=== PATIENT | female | born 1960 | race Caucasian/White ===

== ENCOUNTER 2020-11-25 09:24 | Day surgery (SDC) | payer OTHER ==
[2020-11-20 17:53] VITALS: BMI 21.4
[2020-11-25] MEDS ORDERED: PROPOFOL 20 ML ONE (12:01)
[2020-11-25] MEDS ORDERED: MIDAZOLAM HCL 2 MG/2 ML SINGLE DOSE VIAL ONE (12:01)
[2020-11-25] MEDS ORDERED: LIDOCAINE HCL/PF 2% SDV 5ML VIAL ONE (12:03)
[2020-11-25] MEDS ORDERED: DEXAMETHASONE SOD PHOSPHATE 4 MG/1 ML VIAL ONE (12:03)
[2020-11-25] MEDS ORDERED: ONDANSETRON 4 MG/2 ML VIAL ONE (12:03)
[2020-11-25] MEDS ORDERED: EPHEDRINE SULFATE/0.9% NACL/PF 50 MG/10 ML SYRINGE NR ONE (12:35)
[2020-11-25] MEDS ORDERED: BUPIVACAINE HCL/PF 0.5% (5 MG/ML) 30 ML VIAL IJ ONE (12:52)
[2020-11-25 13:21] VITALS: TEMP 97.8
[2020-11-25] MEDS ORDERED: ONDANSETRON 4 MG/2 ML VIAL IVPUSH PRN (13:56)
[2020-11-25] MEDS ORDERED: oxyCODONE HCL 5 MG TABLET PO PRN (13:56)
[2020-11-25] MEDS ORDERED: IBUPROFEN 200 MG TABLET PO ONE (13:57)
[2020-11-25] MEDS ORDERED: LACTATED RINGERS SOLUTION 1,000 ML IV SCH (14:00)
[2020-11-25] MEDS ORDERED: oxyCODONE HCL 5 MG TABLET ONE (14:06)
[2020-11-25 15:19] VITALS: BP 92/50; PULSE 76
== END 2020-11-25 15:21 | disposition home or self-care (01) ==
LOC: FASU 09:24
PROVIDERS: ATTEND Orthopaedic Surgery Hand Surgery
PROC: 01N54ZZ Release Median Nerve, Percutaneous Endoscopic Approach (ICD-10-PCS; principal; 2020-11-25 11:30)
DX: G56.02 Carpal tunnel syndrome, left upper limb (principal)
CPT/HCPCS: 94760

== ENCOUNTER 2021-01-06 09:43 | Day surgery (SDC) | payer OTHER ==
[2020-12-30 11:26] VITALS: BMI 21.4
[2021-01-06] MEDS ORDERED: PROPOFOL 20 ML ONE ×2 (10:20→11:07)
[2021-01-06] MEDS ORDERED: ONDANSETRON 4 MG/2 ML VIAL ONE ×2 (10:20→11:01)
[2021-01-06] MEDS ORDERED: LIDOCAINE HCL/PF 2% SDV 5ML VIAL ONE (10:20)
[2021-01-06] MEDS ORDERED: KETOROLAC TROMETHAMINE 30 MG/1 ML VIAL ONE ×2 (10:20→11:29)
[2021-01-06] MEDS ORDERED: MIDAZOLAM HCL 2 MG/2 ML SINGLE DOSE VIAL ONE (11:02)
[2021-01-06] MEDS ORDERED: DEXAMETHASONE SOD PHOSPHATE 4 MG/1 ML VIAL ONE (11:02)
[2021-01-06] MEDS ORDERED: PHENYLEPHRINE HCL 10 MG/1 ML SINGLE DOSE VIAL ONE (11:18)
[2021-01-06] MEDS ORDERED: BUPIVACAINE HCL/PF 0.25% (2.5MG/ML) 10 ML VIAL IJ ONE (11:35)
[2021-01-06] MEDS ORDERED: ePHEDrine SULFATE 50 MG/1 ML AMPULE ONE (11:45)
[2021-01-06] MEDS ORDERED: ONDANSETRON 4 MG/2 ML VIAL IVPUSH PRN (11:53)
[2021-01-06] MEDS ORDERED: oxyCODONE HCL 5 MG TABLET PO PRN ×2 (11:53)
[2021-01-06] MEDS ORDERED: LACTATED RINGERS SOLUTION 1,000 ML IV SCH (12:00)
[2021-01-06] MEDS ORDERED: oxyCODONE HCL 5 MG TABLET ONE (12:53)
[2021-01-06 14:10] VITALS: TEMP 97.9
[2021-01-06 14:21] VITALS: BP 100/60; PULSE 70
== END 2021-01-06 13:25 | disposition home or self-care (01) ==
LOC: FASU 09:43
PROVIDERS: ATTEND Orthopaedic Surgery Hand Surgery
PROC: 01N54ZZ Release Median Nerve, Percutaneous Endoscopic Approach (ICD-10-PCS; principal; 2021-01-06 11:21)
DX: G56.01 Carpal tunnel syndrome, right upper limb (principal)